=== PATIENT | female | born 1985 | race African-American/Black ===

== ENCOUNTER 2019-07-11 07:46 | Emergency (ER) | payer SELFPAY ==
[2019-07-11] MEDS ORDERED: Ondansetron PF 4 MG/2 ML Vial ONE (09:08)
[2019-07-11] MEDS ORDERED: Acetaminophen 325 MG TAB ONE (09:09)
[2019-07-11 09:23] LABS: Pregnancy Test - Urine (BHCG) Negative (Negative); Pregu Control Background? CLEAR/WHITE (CLR/WHITE); Pregu Control Bar Appear? YES (CONTROL BAR); Specific Gravity 1.021 (1.002-1.036)
[2019-07-11 09:25] LABS: #Eosinphils 0.1 thou/uL (0.0-0.7); #Lymphocytes 0.8 thou/uL (1.20-3.40); #Monocytes 0.4 thou/uL (0.11-0.59); #Neutrophils 10.8 thou/uL (1.40-6.50); %Basophils 0.1 % (0.0-1.0); %Eosinophils 0.5 % (0.0-10.0); %Lymphocytes 6.7 % (21.0-51.0); %Monocytes 3.5 % (0.0-10.0); %Neutrophils 89.2 % (42.0-75.0); Hemoglobin 13.6 g/dL (12.0-16.0); Mean Corpuscular HGB CONC 33.7 g/dL (32.0-36.0); Mean Corpuscular Hemoglobin 30.5 pg (27.0-31.0); Mean Corpuscular Volume 90.5 fL (78.0-98.0); Mean Platelet Volume 8.9 fL (7.4-10.4); Platelet Count 211 thou/uL (130-400); RBC Distribution Width 12.5 % (11.5-14.5); Red Blood Cell (RBC) Count 4.47 mill/uL (4.20-5.40); White Blood Cell (WBC) Count 12.1 thou/uL (4.8-10.8)
--- NOTE | 2019-07-11 09:37 | RAD ---
EXAM: Chest PA and lateral: HISTORY: Cough COMPARISON: None FINDINGS: Heart size:Within normal limits. Lungs:Clear of acute process. No confluent pneumonia, overt edema, pleural effusion, or other acute process. IMPRESSION: No significant acute intrathoracic disease.
[2019-07-11 10:13] LABS: ALT (SGPT) 18 U/L (8-55); AST (SGOT) 21 U/L (5-34); Albumin 4.3 g/dL (3.5-5.0); Alkaline Phosphatase 69 U/L (40-110); Anion Gap 14 mmol/L (10-20); BUN (Urea Nitrogen) 12 mg/dL (7.0-18.7); Bilirubin, Total 0.8 mg/dL (0.2-1.2); Calc. Creatinine Clearance 0 mL/min (70-130); Carbon Dioxide 23 mmol/L (22-29); Chloride 103 mmol/L (98-107); Estimated GFR-MDRD Greater than 90; Globulin 3.5 g/dL (2.4-3.5); Glucose 101 mg/dL (70-105); Lipase 8 U/L (8-78); Potassium 3.9 mmol/L (3.5-5.1); Protein, Total 7.8 g/dL (6.0-8.3); Sodium 136 mmol/L (136-145)
== END 2019-07-11 10:20 | disposition home or self-care (01) ==
LOC: ERS 07:46
DX: R11.2 Nausea with vomiting, unspecified (principal); R19.7 Diarrhea, unspecified; R51 Headache; R50.9 Fever, unspecified; I10 Essential (primary) hypertension; F32.9 Major depressive disorder, single episode, unspecified; F17.210 Nicotine dependence, cigarettes, uncomplicated; Z79.899 Other long term (current) drug therapy
CPT/HCPCS: 71046; 80053; 81025; 83690; 85025; 96361; 96374; J2405

== ENCOUNTER 2019-09-17 17:30 | Emergency (ER) | payer MEDICAID, SELFPAY ==
[2019-09-17 17:54] LABS: #Basophils 0.1 thou/uL (0.0-0.2); #Eosinphils 0.2 thou/uL (0.0-0.7); #Lymphocytes 2.3 thou/uL (1.20-3.40); #Monocytes 0.8 thou/uL (0.11-0.59); #Neutrophils 5.5 thou/uL (1.40-6.50); %Basophils 1.1 % (0.0-1.0); %Eosinophils 2.4 % (0.0-10.0); %Lymphocytes 26.2 % (21.0-51.0); %Monocytes 8.7 % (0.0-10.0); %Neutrophils 61.7 % (42.0-75.0); Hemoglobin 12.1 g/dL (12.0-16.0); Mean Corpuscular HGB CONC 33.3 g/dL (32.0-36.0); Mean Corpuscular Volume 90.2 fL (78.0-98.0); Mean Platelet Volume 8.8 fL (7.4-10.4); Platelet Count 214 thou/uL (130-400); RBC Distribution Width 12.3 % (11.5-14.5); Red Blood Cell (RBC) Count 4.03 mill/uL (4.20-5.40); White Blood Cell (WBC) Count 8.9 thou/uL (4.8-10.8)
[2019-09-17] MEDS ORDERED: cefTRIAXone\\ROCEPHIN 1 GM VIAL ONE (17:57)
[2019-09-17] MEDS ORDERED: Lidocaine 1% PF 5 ML VIAL ONE (17:57)
[2019-09-17] MEDS ORDERED: Azithromycin 250 MG TAB ONE (17:57)
[2019-09-17 18:04] LABS: Bacteria/HPF None Seen HPF (None Seen); Bilirubin Negative (Negative); Blood, Urine Negative (Negative); Clarity Clear (Clear); Glucose, Urine (Dipstick) Normal (Negative); Leukocyte 250 Leu/uL (Negative); Nitrite Negative (Negative); Protein, Urine (Dipstick) 10 mg/dL (Neg-Trace); Squamous Epithelial 0-3 HPF (0-3); Urobilinogen Normal mg/dL (Less than 2)
[2019-09-17 18:20] LABS: ALT (SGPT) 12 U/L (8-55); AST (SGOT) 12 U/L (5-34); Albumin 4.1 g/dL (3.5-5.0); Alkaline Phosphatase 62 U/L (40-110); Anion Gap 12 mmol/L (10-20); BUN (Urea Nitrogen) 12 mg/dL (7.0-18.7); Bilirubin, Total 0.4 mg/dL (0.2-1.2); Calc. Creatinine Clearance 0 mL/min (70-130); Calcium 9.1 mg/dL (7.8-10.44); Carbon Dioxide 25 mmol/L (22-29); Chloride 105 mmol/L (98-107); Estimated GFR-MDRD Greater than 90; Glucose 89 mg/dL (70-105); Potassium 3.8 mmol/L (3.5-5.1); Protein, Total 7.1 g/dL (6.0-8.3); Sodium 138 mmol/L (136-145)
--- NOTE | 2019-09-17 18:51 | ULT ---
TRANSABDOMINAL TRANSVAGINAL PELVIC ULTRASOUND DATE:: 09/17/2019 5:38 PM CLINICAL HISTORY: Abdominal cramping with history of . COMPARISON: None. TECHNIQUE: Grayscale, color Doppler and spectral Doppler images were obtained of the pelvis see a tra nsabdominal transvaginal approach Uterus: Size: 7.8 x 5.2 x 5.7 cm Mass: None Cervix: Within normal limits Endometrium: There is a single live intrauterine gestation with a pole and yolk sac identified. Medial segment measured 2.6 mm. [place]-rump length is 2.4 mm. The mean sac diameter was 1.37 cm. Cardiac activity is demonstrated and 69 bpm. The average gestational age by ultrasound is 6 weeks and 1 day with estimated May 11, 2020. No subchorionic hemorrhage is evident. Ovaries: The right ovary was not demonstrated. The left ovary measured 4.4 x 2.8 x 3.5 cm. There is a complex cyst within the left ovary measuring 2 cm. There is free fluid seen in the expected region of the right adnexa. There is normal flow to the left ovary. Cul-de-sac: Minimal free fluid IMPRESSION: Findings consistent with intrauterine gestation of undetermined viability. Continued clin ical and sonographic follow-up is recommended. There is a complex cyst involving the left adnexa suspicious for corpus luteal cyst. The right adnexa was not demonstrated. There is minimal free fluid within the pelvis.
== END 2019-09-17 19:20 | disposition home or self-care (01) ==
LOC: ERS 17:30
DX: O99.89 Other specified diseases and conditions complicating pregnancy, childbirth and the puerperium (principal); N89.8 Other specified noninflammatory disorders of vagina; O10.911 Unspecified pre-existing hypertension complicating pregnancy, first trimester; O99.331 Smoking (tobacco) complicating pregnancy, first trimester; F17.210 Nicotine dependence, cigarettes, uncomplicated; Z3A.01 Less than 8 weeks gestation of pregnancy
CPT/HCPCS: 36415; 76856; 80053; 81003; 81015; 84702; 85025; 96372; J0696; J2001

== ENCOUNTER 2019-09-24 23:01 | Emergency (ER) | payer MEDICAID | END 2019-09-24 23:32 | disposition home or self-care (01) | LOC: ERS 23:01 | DX: O99.89 Other specified diseases and conditions complicating pregnancy, childbirth and the puerperium (principal); Z04.3 Encounter for examination and observation following other accident; O16.1 Unspecified maternal hypertension, first trimester; O99.331 Smoking (tobacco) complicating pregnancy, first trimester; F17.210 Nicotine dependence, cigarettes, uncomplicated; O99.341 Other mental disorders complicating pregnancy, first trimester; W19.XXXA Unspecified fall, initial encounter ==

== ENCOUNTER 2019-09-26 19:09 | Emergency (ER) | payer MEDICAID ==
[2019-09-26 20:13] LABS: Bilirubin Negative (Negative); Blood, Urine Negative (Negative); Clarity Clear (Clear); Glucose, Urine (Dipstick) Normal (Negative); Leukocyte Negative Leu/uL (Negative); Nitrite Negative (Negative); Protein, Urine (Dipstick) Negative (Neg-Trace); Urobilinogen Normal mg/dL (Less than 2)
[2019-09-26 20:19] LABS: #Basophils 0.1 thou/uL (0.0-0.2); #Eosinphils 0.2 thou/uL (0.0-0.7); #Lymphocytes 2.9 thou/uL (1.20-3.40); #Monocytes 0.9 thou/uL (0.11-0.59); #Neutrophils 7.1 thou/uL (1.40-6.50); %Basophils 0.7 % (0.0-1.0); %Eosinophils 1.6 % (0.0-10.0); %Lymphocytes 26.1 % (21.0-51.0); %Monocytes 8.2 % (0.0-10.0); %Neutrophils 63.4 % (42.0-75.0); Hemoglobin 11.8 g/dL (12.0-16.0); Mean Corpuscular Hemoglobin 30.8 pg (27.0-31.0); Mean Corpuscular Volume 90.6 fL (78.0-98.0); Mean Platelet Volume 8.6 fL (7.4-10.4); Platelet Count 222 thou/uL (130-400); Red Blood Cell (RBC) Count 3.82 mill/uL (4.20-5.40); White Blood Cell (WBC) Count 11.2 thou/uL (4.8-10.8)
[2019-09-26 20:40] LABS: ALT (SGPT) 14 U/L (8-55); AST (SGOT) 15 U/L (5-34); Alkaline Phosphatase 70 U/L (40-110); Anion Gap 14 mmol/L (10-20); BUN (Urea Nitrogen) 9 mg/dL (7.0-18.7); Bilirubin, Total 0.5 mg/dL (0.2-1.2); Calc. Creatinine Clearance 0 mL/min (70-130); Carbon Dioxide 24 mmol/L (22-29); Chloride 105 mmol/L (98-107); Estimated GFR-MDRD Greater than 90; Globulin 3.1 g/dL (2.4-3.5); Glucose 88 mg/dL (70-105); Potassium 3.9 mmol/L (3.5-5.1); Protein, Total 7.1 g/dL (6.0-8.3); Sodium 139 mmol/L (136-145)
--- NOTE | 2019-09-26 21:18 | ULT ---
Exam: Transabdominal and endovaginal pelvic ultrasound HISTORY: patient. Follow-up exam. First trimester bleeding. Status post fall 2 days ago. COMPARISON:09/17/2019 TECHNIQUE: Transabdominal and endovaginal imaging of the pelvis is performed. Ovaries are interrogate d with grayscale, color flow, Doppler imaging and spectral wave form analysis FINDINGS: Uterus: No myometrial masses. Uterus measurin 5.7 x 6.6 x 11.2 cm. Endometrium: Within the endometrium, there is a gestational sac, yolk sac and pole. Small subch orionic hemorrhage is noted. [place]-rump length is 1.09 cm corresponding to gestational age of 7 weeks 1 day. heart tones with a rate 144 bpm.. Free fluid: Small amount of free fluid in the right adnexa. Right ovary: Cannot be visualized Right ovary measurement: Not applicable Left ovary: Normal echotexture. Complex cyst measures 1.8 x 1.6 x 1.9 cm. Left ovary measurements: 4.3 x 3.1 x 3.1 cm Ovarian Doppler: There is vascular flow to the left ovary. IMPRESSION: 1. Single intrauterine gestation with heart tones. 2. Small subchorionic hemorrhage. 3. Complex left ovarian cyst, possibly a corpus luteal cyst. 4. Nonvisualization of the right ovary. Small amount of fluid in the right adnexa. Transcribed Date/Time: 09/26/2019 9:20 PM
== END 2019-09-26 22:35 | disposition home or self-care (01) ==
LOC: ERS 19:09
DX: O20.0 Threatened abortion (principal); O10.911 Unspecified pre-existing hypertension complicating pregnancy, first trimester; O99.341 Other mental disorders complicating pregnancy, first trimester; F32.9 Major depressive disorder, single episode, unspecified; O99.331 Smoking (tobacco) complicating pregnancy, first trimester; F17.210 Nicotine dependence, cigarettes, uncomplicated; Z3A.01 Less than 8 weeks gestation of pregnancy; Z79.899 Other long term (current) drug therapy; W10.9XXA Fall (on) (from) unspecified stairs and steps, initial encounter
CPT/HCPCS: 36415; 76856; 80053; 81003; 84702; 85025; 86900; 86901

== ENCOUNTER 2019-11-05 00:13 | Emergency (ER) | payer MEDICAID, OTHER ==
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
== END 2019-11-05 02:39 | disposition home or self-care (01) ==
LOC: ERS 00:13
DX: O9A.211 Injury, poisoning and certain other consequences of external causes complicating pregnancy, first trimester (principal); S00.83XA Contusion of other part of head, initial encounter; O99.89 Other specified diseases and conditions complicating pregnancy, childbirth and the puerperium; R10.30 Lower abdominal pain, unspecified; R45.6 Violent behavior; O16.1 Unspecified maternal hypertension, first trimester; Z79.899 Other long term (current) drug therapy; Z3A.12 12 weeks gestation of pregnancy; Y04.8XXA Assault by other bodily force, initial encounter
CPT/HCPCS: 76856

== ENCOUNTER 2019-11-11 17:09 | Emergency (ER) | payer OTHER ==
[2019-11-11 19:20] LABS: Bilirubin Negative (Negative); Blood, Urine Negative (Negative); Clarity Clear (Clear); Glucose, Urine (Dipstick) Normal (Negative); Leukocyte Negative Leu/uL (Negative); Nitrite Negative (Negative); Protein, Urine (Dipstick) Negative (Neg-Trace); Urobilinogen Normal mg/dL (Less than 2)
[2019-11-11 19:20] LABS: #Eosinphils 0.2 thou/uL (0.0-0.7); #Lymphocytes 2.1 thou/uL (1.20-3.40); #Monocytes 0.9 thou/uL (0.11-0.59); #Neutrophils 7.7 thou/uL (1.40-6.50); %Basophils 0.3 % (0.0-1.0); %Eosinophils 1.6 % (0.0-10.0); %Lymphocytes 19.4 % (21.0-51.0); %Monocytes 7.8 % (0.0-10.0); %Neutrophils 70.8 % (42.0-75.0); Hemoglobin 11.4 g/dL (12.0-16.0); Mean Corpuscular HGB CONC 35.2 g/dL (32.0-36.0); Mean Corpuscular Hemoglobin 31.7 pg (27.0-31.0); Mean Corpuscular Volume 89.9 fL (78.0-98.0); Mean Platelet Volume 8.6 fL (7.4-10.4); Platelet Count 235 thou/uL (130-400); White Blood Cell (WBC) Count 10.9 thou/uL (4.8-10.8)
[2019-11-11 19:44] LABS: ALT (SGPT) 31 U/L (8-55); AST (SGOT) 20 U/L (5-34); Albumin 4.2 g/dL (3.5-5.0); Alkaline Phosphatase 66 U/L (40-110); Anion Gap 11 mmol/L (10-20); BUN (Urea Nitrogen) 11 mg/dL (7.0-18.7); Bilirubin, Total 0.4 mg/dL (0.2-1.2); Calc. Creatinine Clearance 0 mL/min (70-130); Calcium 9.8 mg/dL (7.8-10.44); Carbon Dioxide 23 mmol/L (22-29); Chloride 103 mmol/L (98-107); Estimated GFR-MDRD Greater than 90; Globulin 3.3 g/dL (2.4-3.5); Glucose 81 mg/dL (70-105); Potassium 3.4 mmol/L (3.5-5.1); Protein, Total 7.5 g/dL (6.0-8.3); Sodium 134 mmol/L (136-145)
== END 2019-11-11 20:47 | disposition home or self-care (01) ==
LOC: ERS 17:09
DX: O99.89 Other specified diseases and conditions complicating pregnancy, childbirth and the puerperium (principal); R55 Syncope and collapse; O10.911 Unspecified pre-existing hypertension complicating pregnancy, first trimester; Z79.899 Other long term (current) drug therapy; Z3A.13 13 weeks gestation of pregnancy
CPT/HCPCS: 36415; 80053; 81003; 85025; 87086; 96360

== ENCOUNTER 2019-12-26 08:01 | Outpatient (CLI) | payer OTHER ==
--- NOTE | 2019-12-26 10:19 | ULT ---
COMPLETE OBSTETRICAL ULTRASOUND: INDICATION: Evaluate anatomy. FINDINGS: There is a single live intrauterine gestation in transverse presentation with the head to the materna l left. Placenta is posterior in location and low-lying. The placental margin abuts the margin of t he internal os but does not completely cover the internal os. Cardiac activity is noted at 152 b.p.m. DANDRE is 18.5 cm. The visualized head, heart, stomach, kidneys, cord insertion, bladder, spine, lips and nose, ex tremities, and 3-vessel cord appeared within normal limits. The cervical length was 5.76 cm. Biparietal diameter is 5 cm giving an estimated gestational age of 21 weeks and 1 day. Head circumference is 18.24 cm giving an estimated gestational age of 20 weeks and 5 days. The abdominal circumference is 16.61 cm giving an estimated gestational age of 21 weeks and 5 days. The femoral length was 3.14 cm giving an estimated gestational age of 19 weeks and 6 days. The average gestational age by ultrasound is 20 weeks and 6 days with estimated due date of 05/08/2020. The clinical age is 20 weeks and 0 days with estimated due date of 05/14/2020. The estimated weight is 277 grams +/- 55 grams (13 ounces +/- 2 ounces) (86th percentile). IMPRESSION: 1. Low-lying/marginal placenta. The placenta abuts the margin of the internal os without covering. Followup examination in 1-2 weeks is recommended for reevaluation of the placental margin. 2. Single live intrauterine gestation with size and dates as above. 3. survey appeared within normal limits. POS: [facility]
== END 2019-12-26 08:02 | disposition home or self-care (01) ==
LOC: BICULT 08:01
PROVIDERS: ATTEND Family Medicine
DX: O09.522 Supervision of elderly multigravida, second trimester (principal); Z3A.20 20 weeks gestation of pregnancy
CPT/HCPCS: 76805

== ENCOUNTER 2020-04-28 18:00 | Inpatient (IN) | payer OTHER ==
[~2020-04-28 18:00] MED LIST: Bupivacaine 0.25% HCL 30 ML VIAL ONE; Bupivacaine HCl 0.5%/Epinephrine 1:200,000/PF 30 ml Vial ONE
[2020-04-28] MEDS ORDERED: Diphenoxylate HCl/Atropine Tablet PO PRN (19:12)
[2020-04-28] MEDS ORDERED: Ibuprofen 800 MG TAB PO PRN (19:12)
[2020-04-28] MEDS ORDERED: NS / Oxytocin 40 units/1000ml 1,000 ML IV PRN (19:12)
[2020-04-28] MEDS ORDERED: Promethazine HCl 25 MG/ML VIAL IM PRN (19:12)
[2020-04-28] MEDS ORDERED: Misoprostol 200 MCG TAB PR PRN (19:12)
[2020-04-28] MEDS ORDERED: NS w/ Oxytocin 10 units 500 ML IV SCH ×2 (19:12)
[2020-04-28] MEDS ORDERED: Lidocaine 1% (PF) 30 ML VIAL SC PRN (19:12)
[2020-04-28] MEDS ORDERED: Carboprost 250 MCG/ML AMP IM PRN (19:12)
[2020-04-28] MEDS ORDERED: HYDROcodone/Acetaminophen 5/325 mg Tablet PO PRN (19:12)
[2020-04-28] MEDS ORDERED: Ondansetron PF 4 MG/2 ML Vial IVP PRN (19:12)
[2020-04-28] MEDS ORDERED: hydrALAZINE 20 MG/ML VIAL SLOW IVP PRN (19:12)
[2020-04-28] MEDS: Lactated Ringer's 1,000 ML IV SCH (19:30)
[2020-04-28 19:59] LABS: Hemoglobin 11.6 g/dL (12.0-16.0); Mean Corpuscular HGB CONC 35.4 g/dL (32.0-36.0); Mean Corpuscular Hemoglobin 30.6 pg (27.0-31.0); Mean Corpuscular Volume 86.5 fL (78.0-98.0); Mean Platelet Volume 9.8 fL (7.4-10.4); Platelet Count 226 thou/uL (130-400); RBC Distribution Width 12.8 % (11.5-14.5); Red Blood Cell (RBC) Count 3.79 mill/uL (4.20-5.40); White Blood Cell (WBC) Count 7.4 thou/uL (4.8-10.8)
[2020-04-28] MEDS ORDERED: Penicillin G 2.5 MILL.units 2.5 MILL.UNITS in Premix Bag 1 BAG IVPB SCH (20:00)
[2020-04-28] MEDS ORDERED: Penicillin G Potassium 5 MILL.UNITS in Sodium Chloride 0.9% 100 ML IVPB SCH (20:00)
[2020-04-28 20:01] VITALS: BMI 33.5
[2020-04-28] MEDS: Misoprostol 100 MCG TAB PO SCH (20:14)
[2020-04-28 20:28] LABS: Syphilis Antibody Nonreactive (Nonreactive); Syphilis Antibody Index 0.06 S/CO (<1.00 Non-Reactive)
[2020-04-29] MEDS: Misoprostol 100 MCG TAB PO SCH ×3 (00:39→17:56)
[2020-04-29] MEDS: Butorphanol Tartrate 1 MG/ML VIAL SLOW IVP PRN ×2 (02:24→04:13)
[2020-04-29] MEDS ORDERED: Fentanyl 4 mcg/Bup 0.1% Cadd 100 ML ONE (07:11)
[2020-04-29] MEDS ORDERED: Fentanyl 100 MCG/2 ML VIAL ONE (07:16)
[2020-04-29] MEDS ORDERED: diphenhydrAMINE 50 MG/ML VIAL IVP PRN ×2 (07:42→13:40)
[2020-04-29] MEDS ORDERED: Acetaminophen 325 MG TAB PO PRN (07:42)
[2020-04-29] MEDS ORDERED: Lactated Ringer's 500 ML IV PRN (07:42)
[2020-04-29] MEDS ORDERED: Naloxone HCl 0.4 mg/ml Vial IVP PRN ×4 (07:42→13:40)
[2020-04-29] MEDS ORDERED: Promethazine HCl 25 MG/ML VIAL IM PRN ×2 (07:42→13:40)
[2020-04-29] MEDS ORDERED: Ondansetron PF 4 MG/2 ML Vial IVP PRN ×3 (07:42→17:31)
[2020-04-29] MEDS ORDERED: EPHEDRINE 25 MG/5 ML SYRINGE SLOW IVP PRN (07:42)
[2020-04-29] MEDS ORDERED: Fentanyl 4 mcg/Bupivacaine 0.1% Cassette 100 ML EPIDURAL SCH (07:45)
[2020-04-29] MEDS ORDERED: Communication Order-Pharmacy FS PRN (07:45)
[2020-04-29] MEDS: Lactated Ringer's 1,000 ML IV SCH ×2 (08:19→17:58)
[2020-04-29 11:27] LABS: Hep B Surf Ag Non-Reactive S/CO (NonReactive)
[2020-04-29] MEDS ORDERED: NS / Oxytocin 40 units/1000ml 1,000 ML ONE (13:01)
[2020-04-29] MEDS ORDERED: Lidocaine 1% (PF) 30 ML VIAL ONE (13:01)
[2020-04-29 13:14] LABS: ALT (SGPT) 20 U/L (8-55); AST (SGOT) 16 U/L (5-34); Albumin 3.6 g/dL (3.5-5.0); Alkaline Phosphatase 229 U/L (40-110); Anion Gap 13 mmol/L (10-20); BUN (Urea Nitrogen) 8 mg/dL (7.0-18.7); Bilirubin, Total 0.5 mg/dL (0.2-1.2); Calc. Creatinine Clearance 150 mL/min (70-130); Calcium 8.9 mg/dL (7.8-10.44); Carbon Dioxide 21 mmol/L (22-29); Chloride 106 mmol/L (98-107); Estimated GFR-MDRD Greater than 90; Globulin 3.1 g/dL (2.4-3.5); Glucose 97 mg/dL (70-105); Potassium 3.9 mmol/L (3.5-5.1); Protein, Total 6.7 g/dL (6.0-8.3); Sodium 136 mmol/L (136-145)
[2020-04-29 13:15] LABS: HBSAg Index 0.11 S/CO (0-0.99)
[2020-04-29] MEDS ORDERED: Bupivacaine PF 0.5% 30 ML VIAL ONE ×2 (13:15→13:16)
[2020-04-29] MEDS ORDERED: Oxytocin 10 UNITS/ML VIAL ONE (13:18)
[2020-04-29] MEDS ORDERED: CEFAZOLIN 1 GM VIAL ONE (13:19)
[2020-04-29] MEDS ORDERED: MORPHINE 5 MG/10 ML PF VIAL ONE (13:25)
[2020-04-29] MEDS ORDERED: Midazolam HCl 2 mg/2 ml Vial ONE (13:25)
[2020-04-29] MEDS ORDERED: PHENYLEPHRINE-NS 100 MCG/ML 10 ML SYRINGE ONE (13:39)
[2020-04-29] MEDS ORDERED: Promethazine HCl 25 MG SUPP PR PRN (13:40)
[2020-04-29] MEDS ORDERED: Ketorolac Tromethamine 30 MG/ML VIAL IVP PRN (13:40)
[2020-04-29] MEDS ORDERED: Naloxone HCl 0.4 mg/ml Vial IV PRN (13:40)
[2020-04-29] MEDS ORDERED: HYDROmorphone 2 MG/ML VIAL SLOW IVP PRN (13:41)
[2020-04-29] MEDS ORDERED: L&D-Morphine 4 MG/ML VIAL SLOW IVP PRN (13:41)
[2020-04-29] MEDS ORDERED: Meperidine HCl/PF 25 MG/ML VIAL SLOW IVP PRN (13:41)
[2020-04-29] MEDS ORDERED: Ondansetron HCl/PF 4 MG/2 ML Vial IVP PRN (13:41)
[2020-04-29] MEDS ORDERED: Communication Order-Pharmacy FS SCH (13:45)
[2020-04-29] MEDS ORDERED: Ketorolac Tromethamine 30 MG/ML VIAL IVP SCH (13:45)
[2020-04-29] MEDS ORDERED: Ondansetron PF 4 MG/2 ML Vial ONE (13:48)
[2020-04-29 13:51] LABS: Actual Bicarbonate (HCO3v) 22 mEq/L (22-28); Base Excess -11.4 mEq/L (-2.0 to +3.0)
[2020-04-29 13:52] LABS: Actual Bicarbonate (HCO3a) 20.5 mEq/L (22-28); Base Excess (BEa) -13.7 mEq/L (-2.0 to +3.0); pH (Cord, venous) 7.02 (7.32-7.43)
[2020-04-29] MEDS ORDERED: diphenhydrAMINE 25 MG CAP PO PRN (17:31)
[2020-04-29] MEDS ORDERED: Meperidine HCl/PF 25 MG/ML VIAL IM PRN (17:31)
[2020-04-29] MEDS ORDERED: Bisacodyl 10 MG SUPP PR PRN (17:31)
[2020-04-29] MEDS ORDERED: Lanolin Ointment 7 GM TUBE TOP PRN (17:31)
[2020-04-29] MEDS ORDERED: hydrALAZINE 20 MG/ML VIAL SLOW IVP PRN (17:31)
[2020-04-29] MEDS: Ketorolac Tromethamine 30 MG/ML VIAL IVP SCH (18:28)
[2020-04-29] MEDS: metroNIDAZOLE 500 MG in Premix Bag 1 BAG IVPB SCH (18:32)
[2020-04-29] MEDS: CEFAZOLIN 2 GM in Premix Bag 1 BAG IVPB SCH (20:06)
[2020-04-29] MEDS: Labetalol 100 MG TAB PO SCH (21:28)
[2020-04-29] MEDS: Docusate Calcium (SURFAK) 240 MG CAP PO SCH (22:47)
[2020-04-29] MEDS: Ferrous Sulfate 325 MG TAB PO SCH (22:47)
[2020-04-30] MEDS: Ketorolac Tromethamine 30 MG/ML VIAL IVP SCH ×2 (00:23→06:16)
--- NOTE | 2020-04-30 00:37 | OP ---
DATE OF PROCEDURE: 04/29/2020 PREOPERATIVE DIAGNOSES: 1. 38-week . 2. Chronic hypertension. 3. Non-reassuring heart tones. POSTOPERATIVE DIAGNOSES: 1. 38-week . 2. Chronic hypertension. 3. Non-reassuring heart tones. PROCEDURE PERFORMED: Primary low cervical transverse . RESEARCH NUTRITIONIST: Charmaine Mitchell M.D. INDICATIONS: This is a 34-year-old black female, G2, P1, at 38 weeks estimated gestational age, whose SVE was complete/complete/0 station and the infant had a prolonged decel down into the upper 40s that did not resolve with position changes. She was taken emergently for primary and decision to delivery time was 6 minutes. DESCRIPTION OF PROCEDURE: Ms. Pascual was taken to the operating room. Her epidural anesthesia was adequate for the procedure. The skin was prepped expeditiously and the patient was quickly draped. A Pfannenstiel incision was created with a #10 scalpel blade and carried down to the fascia. The fascia was nicked and the fascial incision was extended transversely with the scalpel. The superior fascial segment was grasped with Lu and elevated and the underlying rectus muscle dissected free with blunt and sharp dissection. This was repeated with the inferior fascial segment. The rectus muscles were divided in the midline bluntly. The bladder blade was inserted. The uterus was entered in a low-transverse fashion with a clean #10 scalpel blade. The vertex was delivered onto the operative field. The cord was clamped x2 and was handed to the staff in attendance. Cord blood was obtained. The placenta was manually extracted and sent to pathology for review. The uterus was exteriorized and freed of clots and debris. The uterus was repaired with a running locking suture of 1 Monocryl in a single full-thickness layer followed by interrupted [id number] sutures along the repaired hysterotomy for hemostasis which was observed. The abdomen was copiously irrigated with saline. The posterior side of the uterus has some filmy adhesions, concentrated mostly on the left side. A surgically absent right ovary was noted. There were small bleeders noted on the left posterior aspect of the uterus,which was made hemostatic with Samuel. Once hemostasis was observed, the uterus was returned to the abdomen. The incision was again noted to be hemostatic. The peritoneum was repaired with a running suture of 3-0 Vicryl. Bleeders along the rectus sheath were made hemostatic with the Bovie. The fascia was repaired with a running suture of 0 PDS. The subcutaneous tissues were copiously irrigated with saline. Three interrupted sutures of 3-0 Vicryl were placed in the subdermal layer to reapproximate the skin, which was closed with skin marilynn. Sponge and instrument counts were correct x3. Pale yellow urine was noted to be draining in the Evans at the end of the procedure. EBL 750 mL. Job ID: [id number] [facility]
[2020-04-30] MEDS: metroNIDAZOLE 500 MG in Premix Bag 1 BAG IVPB SCH ×3 (02:32→18:08)
[2020-04-30] MEDS: CEFAZOLIN 2 GM in Premix Bag 1 BAG IVPB SCH ×2 (04:08→12:11)
[2020-04-30 06:17] LABS: Hemoglobin 9.7 g/dL (12.0-16.0); Mean Corpuscular HGB CONC 33.8 g/dL (32.0-36.0); Mean Corpuscular Hemoglobin 29.9 pg (27.0-31.0); Mean Corpuscular Volume 88.5 fL (78.0-98.0); Mean Platelet Volume 8.8 fL (7.4-10.4); Platelet Count 172 thou/uL (130-400); RBC Distribution Width 12.9 % (11.5-14.5); Red Blood Cell (RBC) Count 3.24 mill/uL (4.20-5.40); White Blood Cell (WBC) Count 12.2 thou/uL (4.8-10.8)
[2020-04-30] MEDS ORDERED: Adacel (T-DAP) 0.5 ML SYRINGE IM ONE (09:00)
[2020-04-30] MEDS: Simethicone Chewable 80 MG TAB PO PRN ×2 (09:51→14:08)
[2020-04-30] MEDS: Ferrous Sulfate 325 MG TAB PO SCH ×2 (09:52→21:20)
[2020-04-30] MEDS: Docusate Calcium (SURFAK) 240 MG CAP PO SCH ×2 (09:53→21:20)
[2020-04-30] MEDS: Labetalol 100 MG TAB PO SCH ×2 (09:56→21:20)
[2020-04-30] MEDS: Prenatal Vitamin 1 TAB PO SCH (09:56)
[2020-04-30] MEDS: HYDROcodone/Acetaminophen 5/325 mg Tablet PO PRN ×4 (09:59→22:50)
[2020-04-30] MEDS: Ibuprofen 800 MG TAB PO SCH ×2 (14:08→21:20)
[2020-04-30] MEDS ORDERED: Sodium Chloride 0.9% 10 ML ONE (18:21)
[2020-04-30] MEDS: Cephalexin 250 MG CAP PO SCH (21:19)
[2020-04-30] MEDS: metroNIDAZOLE 500 MG TAB PO SCH (21:19)
[2020-05-01] MEDS: HYDROcodone/Acetaminophen 5/325 mg Tablet PO PRN ×5 (03:30→21:50)
[2020-05-01] MEDS: Ibuprofen 800 MG TAB PO SCH ×3 (05:24→21:17)
[2020-05-01] MEDS: Docusate Calcium (SURFAK) 240 MG CAP PO SCH ×2 (09:23→21:18)
[2020-05-01] MEDS: Prenatal Vitamin 1 TAB PO SCH (09:23)
[2020-05-01] MEDS: Ferrous Sulfate 325 MG TAB PO SCH ×2 (09:23→21:17)
[2020-05-01] MEDS: metroNIDAZOLE 500 MG TAB PO SCH ×3 (09:24→21:17)
[2020-05-01] MEDS: Labetalol 100 MG TAB PO SCH ×2 (09:24→21:17)
[2020-05-01] MEDS: Cephalexin 250 MG CAP PO SCH ×3 (09:24→21:17)
[2020-05-01] MEDS: Simethicone Chewable 80 MG TAB PO PRN (09:28)
[2020-05-02] MEDS: HYDROcodone/Acetaminophen 5/325 mg Tablet PO PRN ×4 (02:11→15:30)
[2020-05-02] MEDS: Ibuprofen 800 MG TAB PO SCH ×2 (06:20→14:21)
[2020-05-02 08:23] VITALS: BP 124/64; TEMP 98.1
[2020-05-02] MEDS: Cephalexin 250 MG CAP PO SCH ×2 (08:30→14:21)
[2020-05-02] MEDS: metroNIDAZOLE 500 MG TAB PO SCH ×2 (08:30→14:21)
[2020-05-02] MEDS: Ferrous Sulfate 325 MG TAB PO SCH (08:30)
[2020-05-02] MEDS: Docusate Calcium (SURFAK) 240 MG CAP PO SCH (08:30)
[2020-05-02] MEDS: Prenatal Vitamin 1 TAB PO SCH (08:30)
[2020-05-02] MEDS: Labetalol 100 MG TAB PO SCH (08:32)
== END 2020-05-02 17:10 | disposition home or self-care (01) | DRG 787 ==
LOC: UNDOADMIN 18:59 → L&D 18:59 → 3SW 04-29 16:45
PROVIDERS: ADMIT Family Medicine; ATTEND Family Medicine
PROC: 10D00Z1 Extraction of Products of Conception, Low, Open Approach (ICD-10-PCS; principal; 2020-04-29)
DX: O76 Abnormality in fetal heart rate and rhythm complicating labor and delivery (principal); O10.92 Unspecified pre-existing hypertension complicating childbirth; O99.824 Streptococcus B carrier state complicating childbirth; Z3A.38 38 weeks gestation of pregnancy; Z37.0 Single live birth; O99.89 Other specified diseases and conditions complicating pregnancy, childbirth and the puerperium; N73.6 Female pelvic peritoneal adhesions (postinfective)
CPT/HCPCS: 36415; 51702; 80053; 82805; 85027; 86780; 86850; 86900; 86901; 87340; J0595; J0670; J0690; J1885; J2001; J2250; J2274; J2405; J2590; J3010; S0020

== ENCOUNTER 2020-06-11 17:17 | Emergency (ER) | payer OTHER ==
[2020-06-11] MEDS ORDERED: Ketorolac Tromethamine 30 MG/ML VIAL ONE (17:53)
[2020-06-11] MEDS ORDERED: Metoclopramide HCl 10 MG/2 ML VIAL ONE (17:53)
[2020-06-11] MEDS ORDERED: diphenhydrAMINE 50 MG/ML VIAL ONE (17:53)
== END 2020-06-11 19:39 | disposition home or self-care (01) ==
LOC: ERS 17:17
DX: R51.9 Headache, unspecified (principal); I10 Essential (primary) hypertension; Z79.899 Other long term (current) drug therapy
CPT/HCPCS: 96365; 96375; J1200; J1885; J2765